=== PATIENT | male | born 1990 | race Caucasian/White ===

== ENCOUNTER → 2023-07-11 | Outpatient (CLI) | payer OTHER ==
[~2023-07-11] MED LIST: Augmentin 875-1 EACH PO; CARDIZEM; DILT120 PO; Naprosyn500 MG PO; Norco 5-325 Ta1 EACH PO; Zofran Odt4 MG SL
== END | disposition home or self-care (01) ==
LOC: LAB 12:21 → LAB SHORT 12:21
DX: H10.32 Unspecified acute conjunctivitis, left eye (principal)
CPT/HCPCS: 87070; 87205